=== PATIENT | female | born 1955 | race Caucasian/White ===

== ENCOUNTER 2018-03-21 12:48 | Outpatient (CLI) | payer OTHER ==
--- NOTE | 2018-03-21 15:01 | DEXA Report ---
Procedure Date: 03/21/2018 Accession Number: [id number] / [id number] Procedure: DEX - Dexa Spine and/or Hip CPT Code: FULL RESULT: EXAM: Dexa Spine and/or Hip DATE: 03/21/2018 1:29 PM CLINICAL HISTORY: POSTMENOPAUSAL, FRACTURES OF LOWER END OF RIGHT RA TECHNIQUE: Dual energy x-ray absorptiometry (DXA) was performed on a Exit41 System. Regions measured are the AP Spine, femoral neck, and if needed forearm. COMPARISON: None. In accordance with the International Society for Clinical Densitometry (ISCD) guidelines, data from previous exams may be reanalyzed using current recommendations and techniques. This is done to allow a more accurate basis for comparison with the current study. FINDINGS: The data for the lumbar spine is as follows: BMD (g/cm/cm) T-SCORE Z-SCORE REGION L1 0.797 -2.8 -1.3 L2 0.843 -3.0 -1.5 L3 0.867 -2.8 -1.3 L4 0.796 -3.4 -1.9 TOTAL 0.825 -3.0 -1.5 NOTE: All evaluable vertebrae are used for classification The data for the hip is as follows: BMD (g/cm/cm) T-SCORE Z-SCORE REGION Neck 0.719 -2.3 -0.9 TOTAL 0.709 -2.4 -1.3 NOTE: The femoral neck or total proximal femur, whichever is lowest, is used for classification. IMPRESSION: THE WHO CLASSIFICATION BASED ON THE INTERNATIONAL REFERENCE STANDARD IS OSTEOPOROSIS. THE FRACTURE RISK IS HIGH. RECOMMENDATION: Patients with diagnosis of osteoporosis or osteopenia should have regular bone mineral density assessment. For those eligible for Medicare, routine testing is allowed once every 2 years. Testing frequency can be increased for patients who have rapidly progressing disease or for those who are receiving medical therapy to restore bone mass. COMMENT: World Health Organization (WHO) definitions for osteoporosis and osteopenia: NORMAL BMD: T-score at -1.0 or higher, fracture risk is low OSTEOPENIA BMD: T-score between -1.0 and -2.5, fracture risk is increased. OSTEOPOROSIS BMD: T-score at -2.5 or lower, fracture risk is high. National Osteoporosis Foundation recommends: 1. Obtain adequate dietary calcium (at least 1200 mg per day) and vitamin D (400-800 international units per day). 2. Participate, as appropriate, in regular weightbearing and muscle-strengthening exercise. 3. Avoid tobacco use and reduce alcohol and caffeine intake. 4. For more detailed information see the website at www.NOF.org.
== END 2018-03-21 12:49 | disposition home or self-care (01) ==
LOC: DI 12:48
PROVIDERS: ATTEND Nurse Practitioner Family
DX: M81.0 Age-related osteoporosis without current pathological fracture (principal); Z78.0 Asymptomatic menopausal state
CPT/HCPCS: 77080

== ENCOUNTER 2018-04-24 08:53 | Outpatient (CLI) | payer OTHER ==
--- NOTE | 2018-04-24 09:46 | XRAY Report ---
Procedure Date: 04/24/2018 Accession Number: [id number] / [id number] Procedure: XRS - Foot 3 View LT CPT Code: FULL RESULT: EXAM: RIGHT FOOT RADIOGRAPHY EXAM DATE: 04/24/2018 09:15 AM. CLINICAL HISTORY: Pain in right foot. Tripped. Pain in right great toe. COMPARISON: None. TECHNIQUE: 3 views. FINDINGS: Bones: Oblique fracture is present involving the volar base of the right first distal phalanx. There may be extent into the right first interphalangeal joint. Plantar calcaneal spur. Joints: No dislocation. Mild right first MTP joint degenerative changes. Soft Tissues: Soft tissue swelling. IMPRESSION: 1. Right first distal phalanx fracture. RADIA
== END 2018-04-24 08:54 | disposition home or self-care (01) ==
LOC: DI.S 08:53
PROVIDERS: ATTEND Nurse Practitioner Family
DX: S92.421A Displaced fracture of distal phalanx of right great toe, initial encounter for closed fracture (principal); M77.31 Calcaneal spur, right foot

== ENCOUNTER 2018-09-06 11:26 | Outpatient (CLI) | payer OTHER ==
--- NOTE | 2018-09-07 08:37 | XRAY Report ---
Reason: TUBERCULOSIS EXPOSURE Procedure Date: 09/06/2018 Accession Number: [id number] / [id number] Procedure: XR - Chest 2 View X-Ray CPT Code: 78936 FULL RESULT: EXAM: CHEST RADIOGRAPHY EXAM DATE: 09/06/2018 03:53 PM. CLINICAL HISTORY: TUBERCULOSIS EXPOSURE. COMPARISON: None. TECHNIQUE: 2 views. FINDINGS: Lungs/Pleura: Right apical pleural thickening. Right apical scarring. No focal infiltrate. No effusion. Mediastinum: Heart and mediastinal contours are unremarkable. Other: DJD spine. Mild wedging midthoracic vertebral body. IMPRESSION: No active cardiopulmonary disease. RADIA
== END 2018-09-06 11:27 | disposition home or self-care (01) ==
LOC: DI 11:26
PROVIDERS: ATTEND Nurse Practitioner
DX: Z20.1 Contact with and (suspected) exposure to tuberculosis (principal)
CPT/HCPCS: 71046

== ENCOUNTER 2019-06-28 09:03 | Outpatient (CLI) | payer OTHER ==
[2019-06-28 17:37] LABS: BASOPHILS % (AUTO) 0.5 %; EOSINOPHILS # (AUTO) 0.3 10^3/uL (0.0-0.7); EOSINOPHILS % (AUTO) 5.9 %; HGB - HEMOGLOBIN 12.1 g/dL (12.0-16.0); LYMPHOCYTES # (AUTO) 1.9 10^3/uL (1.5-3.5); LYMPHOCYTES % (AUTO) 44.5 %; MEAN CORPUSCULAR HEMOGLOBIN 29.2 pg (27.0-31.0); MEAN CORPUSCULAR HGB CONC 31.1 g/dL (32.0-36.0); MEAN PLATELET VOLUME 10.5 fL (7.9-10.8); MONOCYTES # (AUTO) 0.3 10^3/uL (0.0-1.0); MONOCYTES % (AUTO) 7.8 %; NEUTROPHILS # (AUTO) 1.7 10^3/uL (1.5-6.6); NEUTROPHILS % (AUTO) 41.1 %; PLT - PLATELET COUNT 264 10^3/uL (130-450); RED BLOOD COUNT 4.14 10^6/uL (4.20-5.40); WHITE BLOOD COUNT 4.2 x10^3/uL (4.8-10.8)
[2019-06-28 18:17] LABS: HB2 TOTAL 12.8 g/dL; HEMOGLOBIN A1C 0.45 g/dL; HEMOGLOBIN A1C % 5.4 % (4.6-6.2)
[2019-06-28 18:38] LABS: ALBUMIN 4.3 g/dL (3.2-5.5); ALBUMIN/GLOBULIN RATIO 1.3 (1.0-2.2); ALKALINE PHOSPHATASE 38 IU/L (42-121); ALT ALANINE AMINOTRANSFERASE 15 IU/L (10-60); AST ASPARTATE AMINOTRANSFERASE 19 IU/L (10-42); BILIRUBIN,TOTAL 0.6 mg/dL (0.2-1.0); BUN - BLOOD UREA NITROGEN 13 mg/dL (6-20); CALCIUM 9.2 mg/dL (8.5-10.3); CARBON DIOXIDE - CO2 27 mmol/L (21-32); CHLORIDE 107 mmol/L (101-111); CHOL/HDL RATIO 2.4 (<4.4); CHOLESTEROL 279 mg/dL; CREATININE 0.6 mg/dL (0.4-1.0); GFR - MDRD 100 (>89); GLUCOSE 80 mg/dL (70-100); HDL CHOLESTEROL 116 mg/dL; LDL CHOLESTEROL,CALCULATED 149 mg/dL; LDL/HDL RATIO 1.3 (<4.4); SODIUM 145 mmol/L (135-145); TOTAL PROTEIN 7.6 g/dL (6.7-8.2); VLDL CHOLESTEROL 14 mg/dL
== END 2019-06-28 09:04 | disposition home or self-care (01) ==
LOC: LAB.S 09:03
PROVIDERS: ATTEND Registered Nurse
DX: Z13.228 Encounter for screening for other metabolic disorders (principal); Z13.220 Encounter for screening for lipoid disorders; Z13.29 Encounter for screening for other suspected endocrine disorder; Z13.0 Encounter for screening for diseases of the blood and blood-forming organs and certain disorders involving the immune mechanism
CPT/HCPCS: 36415; 80053; 80061; 83036; 83721; 84443; 85025

== ENCOUNTER 2020-12-11 10:32 | Outpatient (CLI) | payer OTHER ==
[2020-12-11 15:30] LABS: BASOPHILS % (AUTO) 0.5 %; EOSINOPHILS # (AUTO) 0.2 10^3/uL (0.0-0.7); EOSINOPHILS % (AUTO) 3.4 %; HCT - HEMATOCRIT 41.6 % (37.0-47.0); HGB - HEMOGLOBIN 13.4 g/dL (12.0-16.0); LYMPHOCYTES # (AUTO) 1.9 10^3/uL (1.5-3.5); LYMPHOCYTES % (AUTO) 43.1 %; MEAN CORPUSCULAR HEMOGLOBIN 29.8 pg (27.0-31.0); MEAN CORPUSCULAR HGB CONC 32.2 g/dL (32.0-36.0); MEAN CORPUSCULAR VOLUME 92.4 fL (81.0-99.0); MEAN PLATELET VOLUME 10.4 fL (7.9-10.8); MONOCYTES # (AUTO) 0.3 10^3/uL (0.0-1.0); MONOCYTES % (AUTO) 6.8 %; PLT - PLATELET COUNT 235 10^3/uL (130-450); RED CELL DISTRIBUTION WIDTH 14.2 % (12.0-15.0); WHITE BLOOD COUNT 4.4 x10^3/uL (4.8-10.8)
[2020-12-11 16:06] LABS: ALBUMIN 4.7 g/dL (3.2-5.5); ALBUMIN/GLOBULIN RATIO 1.5 (1.0-2.2); ALKALINE PHOSPHATASE 52 IU/L (42-121); ALT ALANINE AMINOTRANSFERASE 30 IU/L (10-60); AST ASPARTATE AMINOTRANSFERASE 31 IU/L (10-42); BILIRUBIN,TOTAL 1.3 mg/dL (0.2-1.0); BUN - BLOOD UREA NITROGEN 13 mg/dL (6-20); CALCIUM 9.4 mg/dL (8.5-10.3); CARBON DIOXIDE - CO2 25 mmol/L (21-32); CHLORIDE 102 mmol/L (101-111); CHOL/HDL RATIO 2.2 (<4.4); CHOLESTEROL 293 mg/dL; CREATININE 0.6 mg/dL (0.4-1.0); GFR - MDRD 100 (>89); GLUCOSE 90 mg/dL (70-100); HDL CHOLESTEROL 131 mg/dL; POTASSIUM 4.2 mmol/L (3.5-5.0); SODIUM 141 mmol/L (135-145); TOTAL PROTEIN 7.8 g/dL (6.7-8.2); TRIGLYCERIDES 34 mg/dL
[2020-12-11 16:08] LABS: THYROID STIMULATING HORMONE 2.79 uIU/mL (0.34-5.60)
[2020-12-12 10:42] LABS: HEPATITIS C ANTIBODY NON-REACTIVE (NON-REACTIVE)
== END 2020-12-11 10:33 | disposition home or self-care (01) ==
LOC: LAB.S 10:32
PROVIDERS: ATTEND Registered Nurse
DX: Z00.00 Encounter for general adult medical examination without abnormal findings (principal); Z79.899 Other long term (current) drug therapy
CPT/HCPCS: 36415; 80053; 80061; 83721; 84443; 85025; 86803

== ENCOUNTER 2021-01-04 09:49 | Outpatient (CLI) | payer OTHER ==
--- NOTE | 2021-01-04 17:28 | XRAY Report ---
PROCEDURE: Knee 2 View BILAT INDICATIONS: BILATERAL KNEE PX TECHNIQUE: 2 views of the bilateral knee(s) were acquired. COMPARISON: None. FINDINGS: Bones: No fractures or dislocations. No suspicious bony lesions. Left knee demonstrates predominan tly moderate tricompartmental degenerative narrowing. Left knee demonstrates moderate medial and alicea llofemoral compartment narrowing. Bilateral periarticular osteophytes are present most severe adjacen t to the right medial compartment. No erosions. Soft tissues: Mild bilateral joint effusion. No suspicious soft tissue calcifications. IMPRESSION: Tricompartmental arthritic change on the left as well as bicompartmental arthritic ruiz e on the right as above. Reviewed by: Kavita Blake MD on 01/04/2021 4:26 PM [facility] Approved by: Kavita Blake MD on 01/04/2021 4:26 PM [facility] Station ID: [id number]
== END 2021-01-04 09:50 | disposition home or self-care (01) ==
LOC: DI.S 09:49
PROVIDERS: ATTEND Registered Nurse
DX: M17.0 Bilateral primary osteoarthritis of knee (principal)

== ENCOUNTER 2021-01-28 13:20 | Outpatient (CLI) | payer OTHER ==
--- NOTE | 2021-01-29 09:12 | Mammography Report ---
BILATERAL DIGITAL SCREENING MAMMOGRAM 3D/2D: 01/28/2021 CLINICAL: Routine screening. No prior exams were available for comparison. There are scattered fibroglandular elements in both br easts. No significant masses, calcifications, or other findings are seen in either breast. IMPRESSION: NEGATIVE There is no mammographic evidence of malignancy. A 1 year screening mammogram is recommended. This exam was interpreted at Station ID: [id number]. NOTE: For mammograms, a report in lay terms will be sent to the patient. Approximately 15% of breast malignancies will not be visualized mammographically. In the management of a palpable breast mass, a negative mammogram must not discourage biopsy of a clinically suspicious lesion. Electronically Signed By: Tucker Edmond M.D. [email or web address]/[email or web address]:01/28/2021 18:19:50 ACR BI-RADS Category 1: Negative 3341F PARENCHYMAL PATTERN: (A) - The breast(s) demonstrate(s) scattered fibroglandular densities. BI-RADS CATEGORY: (1) - 1 RECOMMENDATION: (ANNUAL) - Recommend routine annual screening mammography. [id number] 1 year screening LATERALITY: (B)
== END 2021-01-28 13:21 | disposition home or self-care (01) ==
LOC: DI 13:20
PROVIDERS: ATTEND Registered Nurse
DX: Z12.31 Encounter for screening mammogram for malignant neoplasm of breast (principal)

== ENCOUNTER 2021-11-22 08:46 | Outpatient (CLI) | payer OTHER ==
[2021-11-22 15:02] LABS: BASOPHILS % (AUTO) 0.7 %; EOSINOPHILS # (AUTO) 0.3 10^3/uL (0.0-0.7); EOSINOPHILS % (AUTO) 5.7 %; HCT - HEMATOCRIT 40.3 % (37.0-47.0); LYMPHOCYTES # (AUTO) 2.1 10^3/uL (1.5-3.5); LYMPHOCYTES % (AUTO) 37.6 %; MEAN CORPUSCULAR HEMOGLOBIN 30.2 pg (27.0-31.0); MEAN CORPUSCULAR HGB CONC 32.3 g/dL (32.0-36.0); MEAN CORPUSCULAR VOLUME 93.5 fL (81.0-99.0); MEAN PLATELET VOLUME 10.8 fL (7.9-10.8); MONOCYTES # (AUTO) 0.5 10^3/uL (0.0-1.0); MONOCYTES % (AUTO) 8.4 %; NEUTROPHILS # (AUTO) 2.6 10^3/uL (1.5-6.6); NEUTROPHILS % (AUTO) 47.4 %; PLT - PLATELET COUNT 295 10^3/uL (130-450); RED BLOOD COUNT 4.31 10^6/uL (4.20-5.40); RED CELL DISTRIBUTION WIDTH 14.3 % (12.0-15.0); WHITE BLOOD COUNT 5.5 x10^3/uL (4.8-10.8)
[2021-11-22 16:03] LABS: ALBUMIN 4.3 g/dL (3.2-5.5); ALBUMIN/GLOBULIN RATIO 1.5 (1.0-2.2); ALKALINE PHOSPHATASE 41 IU/L (42-121); ALT ALANINE AMINOTRANSFERASE 17 IU/L (10-60); AST ASPARTATE AMINOTRANSFERASE 18 IU/L (10-42); BILIRUBIN,TOTAL 1.1 mg/dL (0.2-1.0); BUN - BLOOD UREA NITROGEN 19 mg/dL (6-20); CALCIUM 9.4 mg/dL (8.5-10.3); CARBON DIOXIDE - CO2 25 mmol/L (21-32); CHLORIDE 104 mmol/L (101-111); CHOL/HDL RATIO 2.2 (<4.4); CHOLESTEROL 252 mg/dL; CREATININE 0.6 mg/dL (0.4-1.0); GFR - MDRD 99 (>89); GLUCOSE 105 mg/dL (70-100); HDL CHOLESTEROL 116 mg/dL; POTASSIUM 4.3 mmol/L (3.5-5.0); SODIUM 139 mmol/L (135-145); TOTAL PROTEIN 7.1 g/dL (6.7-8.2); TRIGLYCERIDES 36 mg/dL
[2021-11-22 16:05] LABS: THYROID STIMULATING HORMONE 3.88 uIU/mL (0.34-5.60)
== END 2021-11-22 08:47 | disposition home or self-care (01) ==
LOC: LAB.S 08:46
PROVIDERS: ATTEND Registered Nurse
DX: Z13.220 Encounter for screening for lipoid disorders (principal); Z79.899 Other long term (current) drug therapy; Z13.29 Encounter for screening for other suspected endocrine disorder
CPT/HCPCS: 36415; 80053; 80061; 83721; 84443; 85025

== ENCOUNTER 2022-08-17 10:49 | Outpatient (CLI) | payer OTHER ==
--- NOTE | 2022-08-18 09:48 | Mammography Report ---
BILATERAL DIGITAL SCREENING MAMMOGRAM 3D/2D WITH EXAGGERATED CC: 08/17/2022 CLINICAL: Routine screening. Comparison is made to exam dated: 01/28/2021 mammogram - [facility]. Both breasts are heterogeneously dense, which may obscure small masses (category c / 51-75% glandular tissue). No significant masses, calcifications, or other findings are seen in either breast. There has been no significant interval change. IMPRESSION: NEGATIVE There is no mammographic evidence of malignancy. A 1 year screening mammogram is recommended. Based on the Tyrer Cuzick model (a risk assessment model) the patients lifetime risk is 7.8% and her 10 year risk is 4.6%. According to the ACR, ACS, and NCCN guidelines, an annual breast MRI exam darcy g with mammogram is recommended if the patients lifetime risk is 20% or greater. This exam was interpreted at Station ID: [id number]. NOTE: For mammograms, a report in lay terms will be sent to the patient. Approximately 15% of breast malignancies will not be visualized mammographically. In the management of a palpable breast mass, a negative mammogram must not discourage biopsy of a clinically suspicious lesion. Electronically Signed By: Elise clemons/penrad:08/17/2022 14:46:44 ACR BI-RADS Category 1: Negative 3341F PARENCHYMAL PATTERN: (D) - The breast(s) demonstrate(s) heterogeneously dense fibroglandular luis miguel henao. BI-RADS CATEGORY: (1) - 1 RECOMMENDATION: (ANNUAL) - Recommend routine annual screening mammography. [id number] 1 year screening LATERALITY: (B)
== END 2022-08-17 10:50 | disposition home or self-care (01) ==
LOC: DI.S 10:49
DX: Z12.31 Encounter for screening mammogram for malignant neoplasm of breast (principal)

== ENCOUNTER 2022-11-20 00:49 | Emergency (ER) | payer MEDICARE, OTHER ==
[2022-11-20] MEDS ORDERED: PROPOFOL 200 MG/20 ML VIAL IVP STA (01:41)
--- NOTE | 2022-11-20 01:56 | ED Physician Documentation ---
PD HPI LOWER EXT INJURY - Stated complaint Stated Complaint: LFT LEG INj - Chief complaint Chief Complaint: Trauma Ext - History obtained from History obtained from: Patient - History of Present Illness PD HPI LOW EXT INJURY LOCATION: Left, Ankle - Additional information Additional information: Patient is a 67-year-old female presenting for evaluation of left ankle injury that occurred just prior to arrival. She missed a step at her house and rolled her ankle. She did not hit her head or have LOC. She does not take a blood thinner. She denies pain or injury elsewhere. She denies prior history of injuries to this joint.She does admit to having 1-2 shots of vodka this evening. She denies that she is a regular EtOH user. She denies having issues with anesthesia and prior surgeries. She last had dinner around 1930 and had water just prior to arrival. Review of Systems Constitutional: denies: Fever Cardiac: denies: Chest pain / pressure Respiratory: denies: Dyspnea GI: denies: Abdominal Pain Musculoskeletal: reports: Joint pain, Joint swelling Neurologic: denies: Syncope, Headache, Head injury PD PAST MEDICAL HISTORY - Present Medications Home Medications: Ambulatory Orders Medication Instructions Recorded Confirmed Oxycodone HCl/Acetaminophen 1 each PO Q6H PRN #14 tablet 11/20/22 [Percocet 5-325 mg Tablet] - Allergies Allergies/Adverse Reactions: Allergies Allergy/AdvReac Type Severity Reaction Status Date / Time No Known Drug Allergies Allergy Verified 11/20/22 00:58 PD ED PE NORMAL - General General: Alert and oriented X 3, No acute distress, Well developed/nourished - HEENT HEENT: Atraumatic, PERRL, EOMI, Pharynx benign - Neck Neck: No bony TTP, C-Spine cleared by NEXUS criteria - Cardiac Cardiac: RRR, Strong equal pulses - Respiratory Respiratory: No respiratory distress, Clear bilaterally - Extremities Extremities: Other (Deformity to left ankle, tenderness and swelling, bruising present to medial malleolus, distal pulses intact,Normal motor and sensation in the foot; Compartments of extremity are soft, no tenderness more proximally) PD ED PE EXPANDED - Extremities Feet visual: 1 - swelling, tenderness Results - Vitals Vitals: Vital Signs - 24 hr 11/20/22 11/20/22 11/20/22 00:52 01:52 03:11 Temperature 36.1 C L Heart Rate 77 77 81 Respiratory 19 16 22 Rate Blood Pressure 119/67 111/71 128/89 H O2 Saturation 96 99 95 11/20/22 11/20/22 03 03:14 03:20 03:22 Temperature Heart Rate 74 83 80 Respiratory 15 16 17 Rate Blood Pressure 112/67 109/84 H O2 Saturation 98 100 11/20/22 03:39 Temperature Heart Rate 75 Respiratory 18 Rate Blood Pressure 114/49 L O2 Saturation 99 Oxygen O2 Source Room air Procedures - Reduction Body part reduced: Left, Ankle Fracture or dislocation: Fracture (wih subluxation) Anesthesia: Other (Procedural sedation) Reduction aftercare: NV intact, Xray confirms reduction, Alignment improved, Splint applied, Crutches, Patient tolerated well - Procedural sedation Sedation prep: Informed consent, Time out completed, Last meal (1929), PE per formed, ASA 1 - healthy Sedation Medications: propofol Mallampati classification: II Patient status during sedation: Drowsy, Responds to verbal, Vitals remained stable, Maintained airway, Recovered uneventfully Sedation recovery: Recovered uneventfully Time in sedation (Minutes): 10 PD Medical Decision Making - ED course Complexity details: reviewed results, re-evaluated patient, d/w patient, d/w family ED course: Patient presenting for evaluation of left ankle injury. Has visible swelling and deformity on exam. She is neurovascularly intact. No head injury or injuries elsewhere. X-rays of her ankle and foot which I reviewed demonstrates An unstable fracture Involving the lateral and medial malleolus. There is additionally medial subluxation of the tibia On the talar dome.The mortise appears to be intact on the lateral view.Given the subluxation seen on the AP view I discussed with patient regarding a reduction To try and better align Or injury. She did consent And did well with propofol for procedural sedation. A sugar-tong with posterior splint was applied and patient was given crutches. A repeat x-ray which I also reviewed has improved alignmentOf the subluxation. However, patient understands that this is a unstable fracture that will likely require surgical repair. There is no orthopedic coverage on this evening but Typically in the situations, orthopedic surgeons would like the swelling to go down before proceeding with any surgery.Patient was given information for local orthopedic surgeon. She is advised that she needs to arrange for follow-up in the next week.Patient was back to her baseline after her procedural sedation and was able to demonstrate use of crutches and understands the importance of nonweightbearing. She remained neurovascularly intact post reduction and splint application. She declined pain medications while here. She is advised on concerning symptoms to return for. Departure - Departure Disposition: 01 Home, Self Care Clinical Impression: Closed left ankle fracture Qualifiers: Encounter type: initial encounter Qualified Code(s): S82.892A - Other fracture of left lower leg, initial encounter for closed fracture Condition: Stable Instructions: ED Fx Ankle General, ED Sedation Procedural Discon Follow-Up: Roshan Rodriguez MD [Provider Admit Priv/Credential] - Prescriptions: Oxycodone HCl/Acetaminophen [Percocet 5-325 mg Tablet] 1 each PO Q6H PRN #14 tablet PRN Reason: pain Comments: You have a very bad ankle fracture With several areas of breaks.Your ankle was also not aligned properly and we gave you medicine to sedate you to line it up better.Your ankle injury needs close orthopedic surgery follow-up. I have listed the name and information for our local orthopedic surgeon on [place]. Please call his office on Monday to arrange for close follow-up. You will likely need surgery in the next 1 to 2 weeks for this injury when the swelling reduces. I would also recommend close follow-up with your primary care doctor as you may need further amounts of pain medication. I have sent initial prescription to [facility] in [place]. You should also stay off the ankle completely and not to bear any weight on it. You have been given crutches to help you get around. I would try and limit the use of stairs. Please keep the splint clean and dry. It must stay on all of the time. If you have any worsening symptoms such as increased pain or numbness or coolness to the leg please return to the emergency department. Please Do not have alcohol, especially while on narcotic pain medication. I am prescribing a short course of narcotic pain medication for you. These are potentially dangerous and addictive medications that should be used carefully. These medications may constipate you. Take an ukfv-ojz-sytjciv stool softener (docusate) twice daily with plenty of water while taking these medications. If you go 24 hours without a bowel movement, take [id number]-ita-[id number] miralax, per package instructions. Do not drink or drive while taking these medications. If you received narcotic or sedating medications while in the emergency department, do not drive for 24 hours. Store this medication in a safe, secure place and out of reach of children. It is a violation of federal law to give or sell this medication to another person or to use in a manner other than prescribed. The ED will not refill narcotic prescriptions, including prescriptions lost or stolen. To dispose of unwanted medications: 1. [facility] at [address] in [place] has a medication drop box. They accept prescription medications (in pill form) Monday through Monday 9:00 a.m. to 5:00 p.m. 2. [facility] [employer] accepts prescription medications (in pill form only) for disposal year round. Call for more information. 3. Contact the [facility] for the next [facility] sponsored prescription drug collection event. , [phone], or [phone]; Note that many narcotic pain relievers also contain Tylenol/acetaminophen. Please ensure that your total dose of acetaminophen from all sources does not exceed 3 g (3000 mg) per day. Discharge Date/Time: 11/20/22 04:04
--- NOTE | 2022-11-20 01:57 | XRAY Report ---
PROCEDURE: Ankle 3 View LT INDICATIONS: fall/pain TECHNIQUE: 3 views of the ankle were acquired. COMPARISON: None. FINDINGS: Bones: No dislocations. Ankle mortise is normally aligned. No suspicious bony lesions. There is a fracture subluxation involving the left ankle with a fracture across the base of the medial malleolu s, and also a comminuted diagonal and vertically oriented set of fractures involving the base of the lateral malleolus. The distal tibial plafond and is subluxed medially by approximately 2.5 cm from an atomic alignment across the talar dome. Soft tissues: No tibiotalar joint effusion. Achilles tendon appears normal. IMPRESSION: Severe fracture with significant abnormal medial subluxation of the tibial plafond and a cross the talar dome. Unstable fracture, comminuted, with displacement of both the medial and lateral malleolus as a result. Reviewed by: Anup Pinon MD on 11/20/2022 1:55 AM PST Approved by: Anup Pinon MD on 11/20/2022 1:55 AM PST Station ID: [id number]
--- NOTE | 2022-11-20 01:58 | XRAY Report ---
PROCEDURE: Foot 3 View LT INDICATIONS: fall/pain TECHNIQUE: 3 views of the foot were acquired. COMPARISON: Ankle plain films same day. FINDINGS: Bones: The ankle fractures with malalignment across the ankle mortise joint is partially visualized b y this study, which is optimized for evaluation of the foot. No foot fractures are found, mild degene rative changes seen at the first MTP joint. At the foot itself normal alignment is present. Fractures or dislocations. No suspicious bony lesions. Soft tissues: No tibiotalar joint effusion. Achilles tendon appears normal. IMPRESSION: Please also refer to dedicated ankle plain films from today, showing severe ankle fracture with malal ignment. The foot itself shows no acute trauma or malalignment. Reviewed by: Anup Pinon MD on 11/20/2022 1:57 AM [facility] Approved by: Anup Pinon MD on 11/20/2022 1:57 AM [facility] Station ID: [id number]
[2022-11-20] MEDS ORDERED: oxyCODONE/ACET 5/325 Prepack 4 PO STA (03:18)
[2022-11-20 03:39] VITALS: BP 114/49
--- NOTE | 2022-11-20 08:05 | XRAY Report ---
PROCEDURE: Ankle 3 View LT INDICATIONS: Trauma TECHNIQUE: 3 views of the ankle were acquired. COMPARISON: 11/20/22 FINDINGS: Bones: Slightly improved alignment of the ankle mortise. Comminuted trimalleolar fracture fragments a gain seen. Possible prominent osteophyte or bone fragment from the dorsal navicular as before. Soft tissues: Cast material in place. IMPRESSION: Slightly improved mortise alignment. Comminuted trimalleolar fracture. No significant ch marga from prelim report. Reviewed by: Marcelino Ayoub MD on 11/20/2022 8:03 AM PDT Approved by: Marcelino Ayoub MD on 11/20/2022 8:03 AM PDT Station ID: [id number]
== END 2022-11-20 04:04 | disposition home or self-care (01) ==
LOC: ED 00:49
DX: S82.892A Other fracture of left lower leg, initial encounter for closed fracture (principal); X50.1XXA Overexertion from prolonged static or awkward postures, initial encounter
CPT/HCPCS: 27840; 94770; 99152

== ENCOUNTER 2022-11-24 12:19 | Outpatient (CLI) | payer MEDICARE ==
--- NOTE | 2022-11-24 13:01 | CT Report ---
PROCEDURE: LOWER EXTREMITY WO - LT INDICATIONS: FX OF LEFT LOWER LEG TECHNIQUE: Noncontrast 3-mm axial sections acquired from the distal tibial shaft to the talar dome, with coronal and sagittal reformats. For radiation dose reduction, the following was used: automated exposure c ontrol, adjustment of mA and/or kV according to patient size. COMPARISON: None. FINDINGS: Image quality: Good Bones: Comminuted mild to moderately displaced fracture of the medial malleolus. Moderately displaced and comminuted fracture of the lateral malleolus, at and above the level of the syndesmosis. Mildly displaced posterior malleolus fracture. Soft tissues: Soft tissue edema is present. IMPRESSION: Comminuted trimalleolar fracture. Fracture pattern implies multi ligamentous injury. Reviewed by: Marcelino Ayoub MD on 11/24/2022 12:59 PM PDT Approved by: Marcelino Ayoub MD on 11/24/2022 12:59 PM PDT Station ID: [id number]
== END 2022-11-24 12:20 | disposition home or self-care (01) ==
LOC: DI 12:19
PROVIDERS: ATTEND Orthopaedic Surgery
DX: S82.852A Displaced trimalleolar fracture of left lower leg, initial encounter for closed fracture (principal)

== ENCOUNTER 2022-11-28 10:13 | Day surgery (SDC) | payer MEDICARE ==
[2022-11-28] MEDS ORDERED: CEFAZOLIN 2G/50ML 0.9% NS 2 GM/50 ML BAG IV ONE (10:20)
[2022-11-28] MEDS ORDERED: CELECOXIB 100 MG CAPSULE PO ONE (10:20)
[2022-11-28] MEDS ORDERED: ACETAMINOPHEN 500 MG TABLET PO ONE (10:20)
[2022-11-28] MEDS ORDERED: LACTATED RINGERS 1,000 ML IV ONE ×2 (10:32→14:40)
[2022-11-28] MEDS ORDERED: PROPOFOL 200 MG/20 ML VIAL IVP ONE (10:35)
[2022-11-28] MEDS ORDERED: MIDAZOLAM 2 MG/2 ML VIAL ONE (10:35)
[2022-11-28] MEDS ORDERED: fentaNYL 100 MCG/2 ML VIAL ONE (10:35)
[2022-11-28] MEDS ORDERED: ROPIVACAINE 0.5% PF 20 ML VIAL ONE (10:36)
[2022-11-28] MEDS ORDERED: BUPIVACAINE 0.25% PF 30 ML VIAL ONE (10:38)
[2022-11-28] MEDS ORDERED: VANCOMYCIN 1 GM VIAL ONE (10:38)
[2022-11-28] MEDS ORDERED: DEXAMETHASONE 4 MG/ML VIAL ONE (10:41)
[2022-11-28] MEDS ORDERED: MORPHINE 2 MG/ML CARPUJECT IVP PRN (10:43)
[2022-11-28] MEDS ORDERED: fentaNYL 100 MCG/2 ML VIAL IVP PRN (10:43)
[2022-11-28] MEDS ORDERED: ATROPINE ABBOJECT 1 MG/10 ML SYRINGE IVP PRN (10:43)
[2022-11-28] MEDS ORDERED: METOCLOPRAMIDE 10 MG/2 ML VIAL IVP PRN (10:43)
[2022-11-28] MEDS ORDERED: NALOXONE 0.4 MG/ML VIAL IVP PRN (10:43)
[2022-11-28] MEDS ORDERED: HYDROmorphone 0.5 MG/0.5 ML SYRINGE IVP PRN (10:43)
[2022-11-28] MEDS ORDERED: ONDANSETRON 4 MG/2 ML VIAL IVP PRN (10:43)
[2022-11-28] MEDS ORDERED: ePHEDrine 50 MG/ML VIAL IVP PRN (10:43)
--- NOTE | 2022-11-28 10:43 | ANESTHESIA ---
Pre-Anesthesia VS, & Labs - Diagnosis bimalleolar left ankle fracture - Procedure ORIF left ankle fracture Vital Signs: Temp Pulse Resp BP Pulse Ox O2 Flow Rate 36.8 C 74 16 125/76 97 11/28/22 10:35 11/28/22 10:35 11/28/22 10:35 11/28/22 10:35 11/28/22 10:35 Height: 5 ft 4 in Weight (kg): 76 kg Body Mass Index: 28.8 BMI Classification: Overweight - NPO >8 hours - Is Patient ?: No Home Medications and Allergies Home Medications: Ambulatory Orders Alendronate [Fosamax] 70 mg PO Q7D 11/25/22 Alendronate [Fosamax] 70 mg PO Q7D 11/25/22 Allergies/Adverse Reactions: Allergies Allergy/AdvReac Type Severity Reaction Status Date / Time No Known Drug Allergies Allergy Verified 11/28/22 10:30 Anes History & Medical History - Anesthetic History Anesthesia Complications: reports: No previous complications - Medical History Cardiovascular: reports: None Pulmonary: reports: None Gastrointestinal: reports: None Urinary: reports: None Musculoskeletal: reports: Osteoarthritis Endocrine/Autoimmune: reports: None Smoking Status: Never smoker History of Cancer?: No - Surgical History General: reports: Appendectomy Orthopedic: reports: Other Exam General: Alert, Oriented x3, Cooperative Dental: WNL Mouth Opening: Greater than 4 Fingerbreadths Neck Mobility: Normal Mallampati classification: II Thyromental Distance: greater than 6 cm Respiratory: Lungs clear Cardiovascular: Regular rate Plan Anesthesia Type: General, Popliteal Block, Adductor Block Regional Block: Per Surgeon's request for Post Op pain control Consent for Procedure(s) Verified and Reviewed: Yes Code Status: Attempt Resuscitation ASA classification: 2-Mild systemic disease Is this case an emergency?: No
[2022-11-28] MEDS ORDERED: LACTATED RINGERS 1,000 ML IV SCH (11:00)
[2022-11-28] MEDS ORDERED: LIDOCAINE MPF 2%-EPI 1:200000 20 ML VIAL ONE (11:52)
[2022-11-28] MEDS ORDERED: BUPIVACAINE 0.5% PF 30 ML VIAL ONE (11:53)
[2022-11-28] MEDS ORDERED: ONDANSETRON 4 MG/2 ML VIAL ONE (12:08)
[2022-11-28] MEDS ORDERED: BUPIVACAINE 0.5% PF 30 ML VIAL INFIL ONE ×2 (12:23)
[2022-11-28] MEDS ORDERED: LIDOCAINE 2%-EPI 1:100000 20 ML MDV SUBQ ONE ×2 (12:23)
[2022-11-28] MEDS ORDERED: SEVOFLURANE 250 ML LIQUID INH ONE (13:07)
--- NOTE | 2022-11-28 14:20 | OPERATIVE REPORT ---
Operative Report - General Procedure Date: 11/28/22 Planned Procedure: Open reduction internal fixation left ankle fractures Pre-Op Diagnosis: Displaced, unstable trimalleolar fracture subluxation left ankle Procedure Performed: Open reduction internal fixation medial malleolus and lateral malleolus left ankle utilizing Arthrex lateral malleolar locking plate and cancellous lag screw for the medial malleolus - Procedure Note Primary Surgeon: Roshan Rodriguez MD Secondary Surgeon: Gisselle SINGH Anesthesia Provider: Preethi Guzman CRNA Anesthesia Technique: General LMA, Regional block Estimated Blood Loss (mL): 50 Indications: This is a relatively healthy and active 67-year-old woman with a history of ground-level fall sustaining closed fracture dislocation left ankle last week, seen in the emergency room, splinted and seen in our office at the end of last week. Her x-ray showed a small avulsion fracture of the medial malleolus, transverse and just below the joint line. The lateral malleolus was fractured at and above the joint line, quite comminuted with shortening. The CT scan showed a small posterior malleolar fragment laterally. Her exam showed swelling and tenderness about the ankle but no fracture blisters and skin was intact. Her tendon function was intact. She had an informed consent was shared decision making, agreed to open reduction internal fixation of the left ankle as outpatient at [facility]. Findings: The fracture of the lateral malleolus was comminuted above the joint line multiple vertical fracture lines, intact distal fragment and proximal shaft. The medial malleolus was relatively small, intra-articular fracture. The syndesmosis was stable after fixation. Complications: None - Other Other Information/Narrative: The patient had a popliteal block performed an additional 10 cc was given over the saphenous nerve by the surgeon intraoperatively of a 50-50 mixture of 2% lidocaine and half percent Marcaine. The patient was placed in a supine position with a foam bolster beneath the left leg. A pneumatic tourniquet was applied to the proximal left thigh. The C arm was covered with a sterile drape. The left lower extremity was prepped and draped in sterile manner in the usual fashion. A timeout procedure was performed by the entire operating room team and all were in agreement. A longitudinal incision measuring several centimeters over the lateral malleolus was utilized. The fracture was exposed by subperiosteal dissection. A tourniquet was applied and elevated 250 mmHg. The major deformity of the fracture besides comminution was shortening. A 6-hole locking lateral fibular plate was applied and secured distally to the lateral malleolus. Just proximal to the proximal edge of the plate, a screw post was inserted, 3.5 mm cortical screw. A laminar on air director was then used to distract the fracture in addition to manual traction. The plate was then secured proximally achieving length to the fracture site. Intraoperative x-rays were obtained and show satisfactory alignment. Additional screws were placed distally and proximal to have obtained secure fixation with combination of locking screws distally and nonlocking screws proximally. I did attempt to try a lag screw perpendicular to the fracture lines but there was too much comminution. A second incision was made over the anteromedial aspect of the ankle. The saphenous vein was protected. A medial arthrotomy was performed. The posterior tibial tendon was protected. The fracture was reduced and temporarily stabilized with the guidepin and a small bone clamp. Drilling of the fracture was then performed over the guidepin using cannulated drill. The longest cancellous screw that was available was 60 mm and this was utilized, partially-threaded. This seemed to achieve good stability of the medial malleolar fracture fragment. The reduction was visualized from the articular side and seem to have a congruent joint. The tourniquet was deflated after 98 minutes. The wounds were thoroughly irrigated including use of a sterile Betadine solution and vancomycin powder. The subcutaneous tissue was closed with 2-0 Monocryl, skin closed standstill dia. Xeroform, sterile gauze, cast padding and a padded posterior fiberglass splint was applied, secured with Flash bandage. Hemostasis was achieved electrocautery after the tourniquet had been deflated. There was good return of circulation to the foot. The patient tolerated procedure well. She did receive 2 g of Ancef intravenously. A physician design assistant was medically necessary to help with prepping and draping, positioning, protection of vital structures, assistance during the procedure including wound closure, dressing and/or splinting.
[2022-11-28] MEDS ORDERED: ONDANSETRON ODT 4 MG TABLET TL PRN (14:38)
[2022-11-28] MEDS ORDERED: oxyCODONE 5 MG TABLET PO PRN (14:38)
--- NOTE | 2022-11-28 15:20 | ANESTHESIA POST OP EVALUATION ---
Anesthesia Post Eval - Post Anesthesia Eval Vitals: Last Vital Signs Temp 36.6 C 11/28/22 15:05 Pulse 79 11/28/22 15:05 Resp 18 11/28/22 15:05 BP 125/83 H 11/28/22 15:05 Pulse Ox 98 11/28/22 15:05 O2 Flow Rate CV Function Including HR & BP: Stable Pain Control: Satisfactory Nausea & Vomiting: Negative Mental Status: Baseline Respiratory Status: Airway Patent Hydration Status: Satisfactory Anesthesia Complications: None
[2022-11-28 15:58] VITALS: BP 114/73
[2022-11-28] MEDS ORDERED: ACETAMINOPHEN 500 MG TABLET PO PRN (16:30)
[2022-11-28] MEDS ORDERED: CELECOXIB 100 MG CAPSULE PO PRN (17:00)
--- NOTE | 2022-11-29 15:48 | XRAY Report ---
PROCEDURE: OR C-Arm Procedure INDICATIONS: ORIF LEFT ANKLE FLUORO TIME: 0:07 min TECHNIQUE: 3 intraoperative fluoroscopic images were obtained of the left ankle. COMPARISON: 11/20/2022 Findings and impression: Fixation images were obtained of the left ankle. On lateral view, a screw appears to be in the transplant immunologist ior soft tissues. Please see operative report for full details. Reviewed by: Marcelino Ayoub MD on 11/29/2022 3:47 PM PDT Approved by: Marcelino Ayoub MD on 11/29/2022 3:47 PM PDT Station ID: [id number]
== END 2022-11-28 10:14 | disposition home or self-care (01) ==
LOC: SDS 10:13
PROVIDERS: ATTEND Orthopaedic Surgery
DX: S82.842A Displaced bimalleolar fracture of left lower leg, initial encounter for closed fracture (principal); W10.9XXA Fall (on) (from) unspecified stairs and steps, initial encounter; Y92.008 Other place in unspecified non-institutional (private) residence as the place of occurrence of the external cause
CPT/HCPCS: 27814; A9270; J0690; J2795; J3370; J3490; J7120

== ENCOUNTER 2023-01-10 08:00 | Outpatient (CLI) | payer MEDICARE ==
--- NOTE | 2023-01-10 15:02 | XRAY Report ---
PROCEDURE: Ankle 3 View LT INDICATIONS: LEFT ANKLE ORIF TECHNIQUE: 3 views of the ankle were acquired. COMPARISON: None. FINDINGS: Bones: Interval surgical fixation of the trimalleolar fracture. Near-anatomic alignment, without dustin dware complication. Soft tissues: Small tibiotalar joint effusion. Achilles tendon appears normal. IMPRESSION: Interval surgical fixation of the trimalleolar fracture. Near-anatomic alignment, without hardware co mplication. Reviewed by: Rashi Figueredo on 01/10/2023 3:00 PM PDT Approved by: Rashi Figueredo on 01/10/2023 3:00 PM PDT Station ID: [id number]
== END 2023-01-10 23:59 | disposition home or self-care (01) ==
LOC: DI.WOS 08:00
PROVIDERS: ATTEND Orthopaedic Surgery
DX: S82.842D Displaced bimalleolar fracture of left lower leg, subsequent encounter for closed fracture with routine healing (principal)

== ENCOUNTER 2023-02-21 08:00 | Outpatient (CLI) | payer MEDICARE ==
--- NOTE | 2023-02-21 16:54 | XRAY Report ---
PROCEDURE: Ankle 3 View LT INDICATIONS: LEFT ANKLE ORIF TECHNIQUE: 3 views of the ankle were acquired. COMPARISON: 01/10/2023 FINDINGS: Bones: Unchanged appearance. A cannulated screw fixates a mildly displaced horizontal distal medial malleolar fracture. There is plate and screw fixation of the distal fibula, which is near anatomic. T here is no evidence of hardware failure or loosening. The distal fibular fracture appears near comple tely healed. There is early healing of the medial malleolar fracture. There is a minimally displaced healing posterior malleolar fracture. Soft tissues: No tibiotalar joint effusion. Achilles tendon appears normal. IMPRESSION: Expected appearance of orthopedic surgical hardware. Stable findings. Reviewed by: Vish Mckay MD on 02/21/2023 4:52 PM PDT Approved by: Vish Mckay MD on 02/21/2023 4:52 PM PDT Station ID: [id number]
== END 2023-02-21 23:59 | disposition home or self-care (01) ==
LOC: DI.WOS 08:00
PROVIDERS: ATTEND Orthopaedic Surgery
DX: S82.842D Displaced bimalleolar fracture of left lower leg, subsequent encounter for closed fracture with routine healing (principal)

== ENCOUNTER 2023-04-25 08:00 | Outpatient (CLI) | payer MEDICARE ==
--- NOTE | 2023-04-26 09:26 | XRAY Report ---
PROCEDURE: Ankle 3 View LT INDICATIONS: LEFT ANKLE FRACTURE TECHNIQUE: 3 views of the ankle were acquired. COMPARISON: None. FINDINGS: Bones: Screw fixation of the medial malleolus and plate and screw fixation of the distal fibula. The re are degenerative changes of the ankle with slight distraction of the medial malleolar fracture. Ot herwise the ankle mortise is normally aligned. No suspicious bony lesions. Soft tissues: No tibiotalar joint effusion. Achilles tendon appears normal. IMPRESSION: Post ORIF of the left ankle Reviewed by: Berto Hutson on 04/26/2023 9:24 AM PDT Approved by: Berto Hutson on 04/26/2023 9:24 AM PDT Station ID: [id number]
== END 2023-04-25 23:59 | disposition home or self-care (01) ==
LOC: DI.WOS 08:00
PROVIDERS: ATTEND Orthopaedic Surgery
DX: S82.842D Displaced bimalleolar fracture of left lower leg, subsequent encounter for closed fracture with routine healing (principal)

== ENCOUNTER 2023-04-27 14:16 | Outpatient (CLI) | payer MEDICARE ==
--- NOTE | 2023-04-27 16:40 | DEXA Report ---
PROCEDURE: Dexa Spine and/or Hip INDICATIONS: POST MENOPAUSAL TECHNIQUE: Dual energy x-ray absorptiometry (DXA) was performed on a MainOne System. Regions measur ed are the AP Spine, femoral neck, and if needed forearm. COMPARISON: 03/21/2018 FINDINGS: Lumbar Spine: Bone Mineral Density 0.869 g/cm/cm,T score -2.6. Since the most recent prior study, there has been a statistically significant increase in bone mineral density by 5.3% Left Femoral Neck: Bone Mineral Density 0.782 g/cm/cm, T score -1.8. Interval change not calculated. Left Hip: Bone Mineral Density 0.765 g/cm/cm,T score -1.9. Interval change not calculated (T score greater or equal to -1.0: NORMAL) (T score from -1.1 to -2.4: OSTEOPENIA) (T score less than or equal to -2.5 to: OSTEOPOROSIS) Impression: By WHO criteria, this patient has osteoporosis. Interval statistical increase in bone minteral density of the lumbar spine. Interval change in densit y of the hip not calculated. Patients with diagnosis of osteoporosis or osteopenia should have regular bone mineral density assess ment. For those eligible for Medicare, routine testing is allowed once every 2 years. Testing frequ ency can be increased for patients who have rapidly progressing disease or for those who are receivin g medical therapy to restore bone mass. Reviewed by: Vish Mckay MD on 04/27/2023 4:39 PM PDT Approved by: Vish Mckay MD on 04/27/2023 4:39 PM PDT Station ID: [id number]
== END 2023-04-27 14:17 | disposition home or self-care (01) ==
LOC: DI 14:16
PROVIDERS: ATTEND Registered Nurse
DX: M81.0 Age-related osteoporosis without current pathological fracture (principal); Z78.0 Asymptomatic menopausal state

== ENCOUNTER 2023-07-24 08:00 | Outpatient (CLI) | payer MEDICARE ==
--- NOTE | 2023-07-24 15:13 | XRAY Report ---
PROCEDURE: Knee 4 View RT INDICATIONS: RIGHT KNEE PAIN TECHNIQUE: 4 views of the knee(s) were acquired. COMPARISON: Bilateral knee radiographs 01/04/2021. FINDINGS: Bones: No fractures or dislocations. Small osteophytes. Mild joint space narrowing. No suspicious stephon ny lesions. Soft tissues: Trace knee joint effusion. No suspicious soft tissue calcifications or masses. 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 Reviewed by: Mesfin Luo MD on 07/24/2023 3:12 PM PST Approved by: Mesfin Luo MD on 07/24/2023 3:12 PM PST Station ID: [id number]
== END 2023-07-24 23:59 | disposition home or self-care (01) ==
LOC: DI.WOS 08:00
PROVIDERS: ATTEND Orthopaedic Surgery
DX: M17.11 Unilateral primary osteoarthritis, right knee (principal)

== ENCOUNTER 2023-08-24 15:23 | Outpatient (CLI) | payer MEDICARE ==
--- NOTE | 2023-08-24 17:52 | XRAY Report ---
PROCEDURE: Wrist 3 View LT INDICATIONS: LEFT WRIST PAIN TECHNIQUE: 3 views of the wrist were acquired. COMPARISON: None. FINDINGS: Bones: No fractures or dislocations. No suspicious bony lesions. Old well-corticated ulnar styloi d avulsion. Soft tissues: No suspicious soft tissue calcifications or masses. IMPRESSION: No acute bony abnormality. If there is anatomic snuff box tenderness, consider wrist immobilization a nd repeat radiographs in 10-14 days or cross-sectional imaging now. If pain persists with conservativ e management, consider repeat radiographs in 10-14 days or cross-sectional imaging. Reviewed by: Vish Mckay MD on 08/24/2023 5:51 PM PST Approved by: Vish Mckay MD on 08/24/2023 5:51 PM PST Station ID: [id number]
== END 2023-08-24 23:59 | disposition home or self-care (01) ==
LOC: DI.S 15:23
PROVIDERS: ATTEND Emergency Medicine
DX: M25.532 Pain in left wrist (principal)

== ENCOUNTER 2023-09-12 08:00 | Outpatient (CLI) | payer MEDICARE ==
--- NOTE | 2023-09-12 13:01 | XRAY Report ---
PROCEDURE: Wrist 3 View LT INDICATIONS: LEFT WRIST PAIN TECHNIQUE: 3 views of the wrist were acquired. COMPARISON: Left wrist radiographs 08/24/2023. FINDINGS: Bones: Comminuted minimally angulated intra-articular fracture of the distal radius. This fracture i s not well-visualized on the prior radiographs even in retrospect. A small ossification is seen adjac ent to the ulnar styloid that is likely the sequela of remote prior trauma. Moderate degenerative blue nges are seen at the 1st carpometacarpal joint. Soft tissues: Nonspecific soft tissue edema surrounding the wrist. IMPRESSION: Comminuted intra-articular fracture of the distal radius with minimal impaction and dorsal angulation . Reviewed by: Wilmer Damian MD on 09/12/2023 1:00 PM [facility] Approved by: Wilmer Damian MD on 09/12/2023 1:00 PM [facility] Station ID: [id number]
== END 2023-09-12 23:59 | disposition home or self-care (01) ==
LOC: DI.WOS 08:00
PROVIDERS: ATTEND Orthopaedic Surgery
DX: S52.592A Other fractures of lower end of left radius, initial encounter for closed fracture (principal)

== ENCOUNTER 2023-10-10 09:15 | Outpatient (CLI) | payer MEDICARE ==
--- NOTE | 2023-10-11 12:24 | Mammography Report ---
BILATERAL DIGITAL SCREENING MAMMOGRAM 3D/2D: 10/10/2023 CLINICAL: Routine screening. Comparison is made to exams dated: 08/17/2022 mammogram and [facility] Both breasts are heterogeneously dense, which may obscure small masses (category c / 51-75% glandular tissue). No significant masses, calcifications, or other findings are seen in either breast. There has been no significant interval change. IMPRESSION: NEGATIVE There is no mammographic evidence of malignancy. A 1 year screening mammogram is recommended. Based on the Tyrer Cuzick model (a risk assessment model) the patient's lifetime risk is 7.2% and her 10 year risk is 4.6%. According to the ACR, ACS, and NCCN guidelines, an annual breast MRI exam darcy g with mammogram is recommended if the patients lifetime risk is 20% or greater. This exam was interpreted at Station ID: [id number]. NOTE: For mammograms, a report in lay terms will be sent to the patient. Approximately 15% of breast malignancies will not be visualized mammographically. In the management of a palpable breast mass, a negative mammogram must not discourage biopsy of a clinically suspicious lesion. Electronically Signed By: Citlaly Landin M.D., PH.D eb/penrad:10/10/2023 10:42:31 letter sent: No_Letter ACR BI-RADS Category 1: Negative 3341F PARENCHYMAL PATTERN: (D) - The breast(s) demonstrate(s) heterogeneously dense fibroglandular luis miguel henao. BI-RADS CATEGORY: (1) - 1 Mammogram [id number] 1 year screening LATERALITY: (B)
== END 2023-10-10 09:16 | disposition home or self-care (01) ==
LOC: DI.S 09:15
PROVIDERS: ATTEND Registered Nurse
DX: Z12.31 Encounter for screening mammogram for malignant neoplasm of breast (principal); R92.333 Mammographic heterogeneous density, bilateral breasts